=== PATIENT | female | born 1970 | race Caucasian/White ===

== ENCOUNTER 2017-10-30 07:50 | Emergency (ER) | payer MEDICARE, OTHER ==
[~2017-10-30] VITALS: Ht 157.5 cm; Wt 56.7 kg
[2017-10-30 07:56] VITALS: BP 115/85
[2017-10-30] MEDS ORDERED: HYDROCODONE/APAP 10/325MG 1 EA TABLET PO STA (08:40)
[2017-10-30] MEDS ORDERED: HYDROCODONE/APAP 10/325MG 1 EA TABLET ONE (08:41)
== END 2017-10-30 08:32 | disposition home or self-care (01) ==
LOC: ER 07:52
DX: M54.5 Low back pain (principal); G89.29 Other chronic pain; Z91.030 Bee allergy status
CPT/HCPCS: A4606; Z7610